=== PATIENT | male | born 1935 | race Caucasian/White ===

== ENCOUNTER 2019-05-12 13:48 | Inpatient (IN) | payer MEDICARE, OTHER | END 2019-05-17 16:15 | LOC: ER 13:48 → TELE 13:49 → TELE-CENTR 21:44 | DX: M51.36 Other intervertebral disc degeneration, lumbar region (principal); M54.5 Low back pain; G62.9 Polyneuropathy, unspecified; R06.02 Shortness of breath; E86.0 Dehydration; I10 Essential (primary) hypertension; R26.9 Unspecified abnormalities of gait and mobility ==